=== PATIENT | male | born 1970 | race Caucasian/White ===

== ENCOUNTER → 2024-11-07 | Outpatient (CLI) | payer BC ==
--- NOTE | 2024-11-07 16:49 | CT ---
EXAMINATION TYPE: CT angio chest DATE OF EXAM: 11/07/2024 4:32 PM COMPARISON: None available. CLINICAL INDICATION: Male, 54 years old with history of R06.09 OTHER FORMS OF DYSPNEA; hx of recent P E TECHNIQUE/CONTRAST: CTA scan of the thorax is performed with IV Contrast, patient injected with 100 ml mL of Isovue 370, MIP images are created and reviewed these are created on a separate workstation.. CT DLP: 468 mGycm, Automated exposure control for dose reduction was used. FINDINGS: Pulmonary Artery: Suboptimal timing of contrast bolus limits evaluation of the distal segmental and s ubsegmental pulmonary artery branches. There is no evidence for a filling defect within the pulmonary vasculature to suggest acute pulmonary embolism. The pulmonary artery is of normal size. Lungs/Pleura: No evidence of focal consolidation, pleural effusion or pneumothorax. Minimal tree-in-b ud nodularity in the right middle lobe which could reflect sequelae of infectious bronchiolitis. Scar ring/atelectasis in the right upper lobe. Airway: Large airways are patent. Heart: Heart is within normal limits for size. Vasculature: No evidence of aortic aneurysm. Mediastinum: Calcified mediastinal and hilar lymph nodes, likely sequelae of previous granulomatous d isease. No gross evidence of pathologic adenopathy. Musculoskeletal: No acute osseous abnormalities Soft Tissues/lymph nodes: Unremarkable. Lower neck: No significant findings. Upper Abdomen: No significant acute or findings. IMPRESSION: 1. No evidence of central or proximal segmental acute pulmonary embolism. 2. Mild tree-in-bud nodularity in the right middle lobe in addition to right upper lobe bronchial wa ll thickening with surrounding scarring/atelectasis. Findings could reflect sequela of infectious bro nchitis and bronchiolitis. [facility], , 11/07/2024 4:47 PM
== END | disposition home or self-care (01) ==
LOC: RADCTMAIN 15:33
PROVIDERS: ATTEND Internal Medicine Critical Care Medicine
DX: R91.8 Other nonspecific abnormal finding of lung field (principal); R06.09 Other forms of dyspnea
CPT/HCPCS: 71275; 36415; Q9967